=== PATIENT | female | born 1960 | race Caucasian/White ===

== ENCOUNTER 2021-09-29 13:28 | Emergency (ER) | payer SELFPAY ==
[~2021-09-29] VITALS: Ht 165.1 cm; Wt 61.2 kg
[2021-09-29 14:22] LABS: BASOPHILS # (AUTO) 0.1 (0.0-0.1); BASOPHILS % 0.9 % (0.0-1.0); EOSINOPHILS # (AUTO) 1.4 (0.0-0.4); EOSINOPHILS % 19.7 % (0.0-6.0); HEMATOCRIT 39.9 % (34.2-44.1); HEMOGLOBIN 12.4 g/dL (12.0-16.0); LYMPHOCYTES # (AUTO) 1.6 (1.0-3.2); MEAN CORPUSCULAR HEMOGLOBIN 29.2 pg (28-32); MEAN CORPUSCULAR HGB CONC 31.1 g/dL (31-35); MEAN CORPUSCULAR VOLUME 94.1 fL (81-99); MONOCYTES # (AUTO) 0.4 (0.2-0.8); MONOCYTES % 6.1 % (4.4-11.3); NEUTROPHILS # (AUTO) 3.5 (2.1-6.9); NEUTROPHILS % 50.2 % (38.7-80.0); PLATELET COUNT 219 x10e3/uL (140-360); RED BLOOD COUNT 4.24 x10e6/uL (3.6-5.1); RED CELL DISTRIBUTION WIDTH 12.8 % (11.7-14.4)
[2021-09-29 14:28] LABS: ABG HCO3 26 mmol/L (22-26); ABG PCO2 42 mmHg (35-45); ABG PH 7.39 (7.35-7.45); ABG PO2 81 mmHg (80-105); ABG TCO2 27
[2021-09-29 14:34] LABS: INR 0.91; PROTHROMBIN TIME 12.9 seconds (11.9-14.5)
[2021-09-29 14:43] LABS: ALBUMIN 3.5 g/dL (3.5-5.0); ALBUMIN/GLOBULIN RATIO 1.1 (0.8-2.0); ANION GAP 12.4 mmol/L (8-16); CALCIUM 8.8 mg/dL (8.4-10.2); CREATININE, SERUM 0.67 mg/dL (0.57-1.11); MAGNESIUM 1.7 MG/DL (1.3-2.1); POTASSIUM 3.4 mmol/L (3.5-5.1)
[2021-09-29 14:49] LABS: CREATINE KINASE MB 1.2 ng/mL (0-5.0)
[2021-09-29 14:53] LABS: B-TYPE NATRIURETIC PEPTIDE2 59.6 pg/mL (0-100)
== END 2021-09-29 15:58 | disposition home or self-care (01) ==
LOC: ER 13:31
DX: R06.02 Shortness of breath (principal); J44.1 Chronic obstructive pulmonary disease with (acute) exacerbation; J40 Bronchitis, not specified as acute or chronic; I10 Essential (primary) hypertension; Z20.822 Contact with and (suspected) exposure to COVID-19
CPT/HCPCS: 36415; 36600; 71045; 80053; 82550; 82553; 82805; 83605; 83735; 83880; 84484; 85025; 85610; 85730; 87040; 93005; 99284; U0002

== ENCOUNTER 2022-09-26 10:47 | Inpatient (IN) | payer SELFPAY ==
[~2022-09-26] VITALS: Ht 165.1 cm; Wt 72.7 kg
[~2022-09-26 10:47] MED LIST: AZITHROMYCIN250 MG PO; BUSPIRONE HCL5 MG PO; CARDIZEM60 MG PO; DILTIAZEM PO; LISINOPRIL5 MG PO; PREDNISONE20 MG PO
[2022-09-26] MEDS ORDERED: ALBUTEROL/IPRATROPIUM 3 ML NEB NEB SCH (11:15)
[2022-09-26 11:25] LABS: BASOPHILS # (AUTO) 0.1 (0.0-0.1); BASOPHILS % 0.4 % (0.0-1.0); EOSINOPHILS # (AUTO) 0.9 (0.0-0.4); HEMATOCRIT 45.2 % (34.2-44.1); HEMOGLOBIN 13.7 g/dL (12.0-16.0); LYMPHOCYTES # (AUTO) 2.1 (1.0-3.2); MEAN CORPUSCULAR HEMOGLOBIN 29.9 pg (28-32); MEAN CORPUSCULAR HGB CONC 30.3 g/dL (31-35); MEAN CORPUSCULAR VOLUME 98.7 fL (81-99); MONOCYTES # (AUTO) 0.4 (0.2-0.8); MONOCYTES % 3.4 % (4.4-11.3); NEUTROPHILS # (AUTO) 8.7 (2.1-6.9); NEUTROPHILS % 71.8 % (38.7-80.0); PLATELET COUNT 248 x10e3/uL (140-360); RED BLOOD COUNT 4.58 x10e6/uL (3.6-5.1); RED CELL DISTRIBUTION WIDTH 13.1 % (11.7-14.4)
[2022-09-26] MEDS ORDERED: METHYLPREDNISOLONE SOD SUCC 125 MG/2ML VIAL IV ONE (11:30)
[2022-09-26] MEDS ORDERED: LORAZEPAM INJ 2 MG/ML VIAL IV ONE (11:30)
[2022-09-26 11:48] LABS: ALBUMIN 4.1 g/dL (3.5-5.0); ALBUMIN/GLOBULIN RATIO 1.2 (0.8-2.0); ANION GAP 16.6 mmol/L (8-16); CALCIUM 9.5 mg/dL (8.4-10.2); CREATININE, SERUM 0.65 mg/dL (0.57-1.11); POTASSIUM 3.6 mmol/L (3.5-5.1)
[2022-09-26 12:04] LABS: ABG HCO3 24 mmol/L (22-26); ABG PCO2 40 mmHg (35-45); ABG PH 7.38 (7.35-7.45); ABG PO2 56 mmHg (80-105); ABG TCO2 25
[2022-09-26] MEDS ORDERED: KETOROLAC TROMETHAMINE 30 MG/ML VIAL IV STA (12:42)
[2022-09-26] MEDS ORDERED: Morphine 4mg INJECTION 4 MG/ML INJ IV PRN (13:00)
[2022-09-26] MEDS ORDERED: LACTATED RINGER'S 1,000 ML INJ ONE (13:00)
[2022-09-26] MEDS ORDERED: ONDANSETRON HCL INJ 2MG/ML 2ML 2 MG/ML VIAL IV PRN (13:00)
[2022-09-26] MEDS ORDERED: SODIUM CHLORIDE 0.9% 1000ML 1,000 ML IV SCH (13:00)
[2022-09-26] MEDS ORDERED: DILTIAZEM HCL60 MG PO (13:36)
[2022-09-26] MEDS ORDERED: LISINOPRIL5 MG PO (13:36)
[2022-09-26] MEDS ORDERED: ALBUTEROL/IPRATROPIUM 3 ML NEB NEB PRN (15:30)
[2022-09-26] MEDS ORDERED: ZOLPIDEM TARTRATE 5 MG TAB PO PRN (15:30)
[2022-09-26] MEDS: LACTATED RINGER'S 1,000 ML INJ SCH (15:32)
[2022-09-26] MEDS ORDERED: SODIUM CHLORIDE 0.9% 250ML 250 ML ONE (15:42)
[2022-09-26] MEDS: DILTIAZEM HCL 60 MG TAB PO SCH (17:45)
[2022-09-26 23:00] VITALS: BP 135/75
[2022-09-26] MEDS: ACETAMINOPHEN 325 MG TAB PO PRN (23:52)
[2022-09-27] VITALS (30 sets, daily range): BP systolic 98–137; BP diastolic 48–80
[2022-09-27] MEDS: ACETAMINOPHEN 325 MG TAB PO PRN ×3 (02:53→20:31)
[2022-09-27 06:54] LABS: BASOPHILS % 0.3 % (0.0-1.0); HEMATOCRIT 36.2 % (34.2-44.1); HEMOGLOBIN 11.8 g/dL (12.0-16.0); LYMPHOCYTES % 13.1 % (18.0-39.1); MEAN CORPUSCULAR HGB CONC 32.6 g/dL (31-35); MEAN CORPUSCULAR VOLUME 92.1 fL (81-99); MONOCYTES # (AUTO) 0.6 (0.2-0.8); MONOCYTES % 8.1 % (4.4-11.3); NEUTROPHILS # (AUTO) 6.2 (2.1-6.9); PLATELET COUNT 201 x10e3/uL (140-360); RED BLOOD COUNT 3.93 x10e6/uL (3.6-5.1)
[2022-09-27 07:18] LABS: CALCIUM 9.2 mg/dL (8.4-10.2); CREATININE, SERUM 0.56 mg/dL (0.57-1.11)
[2022-09-27] MEDS: METHYLPREDNISOLONE SOD SUCC 125 MG/2ML VIAL IV SCH (08:34)
[2022-09-27] MEDS: DILTIAZEM HCL 60 MG TAB PO SCH ×2 (08:37→16:57)
[2022-09-27] MEDS: LISINOPRIL 2.5 MG TAB PO SCH (08:38)
[2022-09-27] MEDS: LACTATED RINGER'S 1,000 ML INJ SCH (11:54)
[2022-09-27] MEDS: ALBUTEROL/IPRATROPIUM 3 ML NEB NEB PRN ×2 (16:14→19:11)
[2022-09-27] MEDS ORDERED: BUSPIRONE HCL 5 MG TAB PO PRN (18:00)
[2022-09-27] MEDS: CLONAZEPAM 0.5 MG TAB PO SCH (20:30)
[2022-09-27] MEDS ORDERED: DIPHENHYDRAMINE HCL 25 MG CAP PO PRN (21:00)
[2022-09-27] MEDS: TRAMADOL HCL 50 MG TAB PO PRN (22:37)
[2022-09-28] VITALS (20 sets, daily range): BP systolic 96–128; BP diastolic 57–106
[2022-09-28 06:43] LABS: BASOPHILS % 0.3 % (0.0-1.0); EOSINOPHILS % 0.1 % (0.0-6.0); HEMATOCRIT 35.1 % (34.2-44.1); HEMOGLOBIN 11.2 g/dL (12.0-16.0); LYMPHOCYTES # (AUTO) 1.9 (1.0-3.2); LYMPHOCYTES % 25.1 % (18.0-39.1); MEAN CORPUSCULAR HEMOGLOBIN 29.9 pg (28-32); MEAN CORPUSCULAR HGB CONC 31.9 g/dL (31-35); MEAN CORPUSCULAR VOLUME 93.6 fL (81-99); MONOCYTES # (AUTO) 0.5 (0.2-0.8); NEUTROPHILS # (AUTO) 5.1 (2.1-6.9); NEUTROPHILS % 67.1 % (38.7-80.0); PLATELET COUNT 205 x10e3/uL (140-360); RED BLOOD COUNT 3.75 x10e6/uL (3.6-5.1); RED CELL DISTRIBUTION WIDTH 13.3 % (11.7-14.4)
[2022-09-28 07:00] LABS: ALBUMIN 3.2 g/dL (3.5-5.0); ALBUMIN/GLOBULIN RATIO 1.2 (0.8-2.0); ANION GAP 11.9 mmol/L (8-16); CREATININE, SERUM 0.58 mg/dL (0.57-1.11); POTASSIUM 3.9 mmol/L (3.5-5.1)
[2022-09-28] MEDS: METHYLPREDNISOLONE SOD SUCC 125 MG/2ML VIAL IV SCH ×2 (09:14→20:00)
[2022-09-28] MEDS: DILTIAZEM HCL 60 MG TAB PO SCH ×2 (09:19→16:01)
[2022-09-28] MEDS: LISINOPRIL 2.5 MG TAB PO SCH (09:19)
[2022-09-28] MEDS: ALBUTEROL/IPRATROPIUM 3 ML NEB NEB SCH ×3 (11:02→19:00)
[2022-09-28] MEDS: CLONAZEPAM 0.5 MG TAB PO SCH (20:00)
[2022-09-28] MEDS: TRAMADOL HCL 50 MG TAB PO PRN (20:00)
[2022-09-29] VITALS (14 sets, daily range): BP systolic 110–132; BP diastolic 56–73
[2022-09-29] MEDS: ALBUTEROL/IPRATROPIUM 3 ML NEB NEB SCH ×3 (00:35→13:00)
[2022-09-29] MEDS: METHYLPREDNISOLONE SOD SUCC 125 MG/2ML VIAL IV SCH (08:12)
[2022-09-29] MEDS: DILTIAZEM HCL 60 MG TAB PO SCH (08:13)
[2022-09-29] MEDS: LISINOPRIL 2.5 MG TAB PO SCH (08:14)
[2022-09-29 08:23] LABS: BASOPHILS % 0.1 % (0.0-1.0); HEMATOCRIT 39.3 % (34.2-44.1); HEMOGLOBIN 12.5 g/dL (12.0-16.0); LYMPHOCYTES # (AUTO) 1.2 (1.0-3.2); MEAN CORPUSCULAR HEMOGLOBIN 29.9 pg (28-32); MEAN CORPUSCULAR HGB CONC 31.8 g/dL (31-35); MONOCYTES # (AUTO) 0.4 (0.2-0.8); MONOCYTES % 4.9 % (4.4-11.3); NEUTROPHILS # (AUTO) 6.2 (2.1-6.9); NEUTROPHILS % 79.2 % (38.7-80.0); PLATELET COUNT 220 x10e3/uL (140-360); RED BLOOD COUNT 4.18 x10e6/uL (3.6-5.1); RED CELL DISTRIBUTION WIDTH 13.2 % (11.7-14.4)
[2022-09-29 08:39] LABS: ALBUMIN 3.8 g/dL (3.5-5.0); ALBUMIN/GLOBULIN RATIO 1.3 (0.8-2.0); ANION GAP 16.3 mmol/L (8-16); CALCIUM 9.3 mg/dL (8.4-10.2); CREATININE, SERUM 0.6 mg/dL (0.57-1.11); POTASSIUM 4.3 mmol/L (3.5-5.1)
[2022-09-29] MEDS ORDERED: PROVENTIL HFA6.7 GM INH (13:31)
[2022-09-29] MEDS ORDERED: PREDNISONE5 MG PO (13:33)
[2022-09-29] MEDS ORDERED: LEVOFLOXACIN500 MG (13:35)
[2022-09-29] MEDS ORDERED: BUSPIRONE HCL5 MG PO (13:35)
[2022-09-30] MEDS ORDERED: METHYLPREDNISOLONE SOD SUCC 125 MG/2ML VIAL IV SCH (09:00)
== END 2022-09-29 14:21 | disposition home or self-care (01) | DRG 190 ==
LOC: ER 11:10 → ERHOLD 12:59 → ICU 23:25
PROVIDERS: ADMIT Internal Medicine; ATTEND Internal Medicine
DX: J44.1 Chronic obstructive pulmonary disease with (acute) exacerbation (principal); J18.9 Pneumonia, unspecified organism; D64.9 Anemia, unspecified; F41.9 Anxiety disorder, unspecified; I10 Essential (primary) hypertension; Z79.2 Long term (current) use of antibiotics; Z79.52 Long term (current) use of systemic steroids; Z79.899 Other long term (current) drug therapy; Z88.5 Allergy status to narcotic agent; Z88.0 Allergy status to penicillin; Z87.891 Personal history of nicotine dependence
CPT/HCPCS: 36415; 36600; 71045; 80048; 80053; 82805; 83605; 84484; 85025; 87040; 93005; 94640; 94660; 94799; 99252; 99284; J0456; J0692; J0696; J1885; J2060; J2270; J2405; J2930; J7050; J7121

== ENCOUNTER 2022-10-10 11:40 | Emergency (ER) | payer SELFPAY ==
[~2022-10-10] VITALS: Ht 165.1 cm; Wt 72.6 kg
[~2022-10-10 11:40] MED LIST changes: +DILTIAZEM HCL60 MG PO; +LEVOFLOXACIN500 MG; +PREDNISONE5 MG PO; +PROVENTIL HFA6.7 GM INH
[2022-10-10 12:23] LABS: BASOPHILS % 0.3 % (0.0-1.0); EOSINOPHILS # (AUTO) 0.4 (0.0-0.4); EOSINOPHILS % 5.1 % (0.0-6.0); HEMATOCRIT 41.3 % (34.2-44.1); HEMOGLOBIN 12.5 g/dL (12.0-16.0); LYMPHOCYTES # (AUTO) 1.8 (1.0-3.2); LYMPHOCYTES % 25.7 % (18.0-39.1); MEAN CORPUSCULAR HEMOGLOBIN 29.6 pg (28-32); MEAN CORPUSCULAR HGB CONC 30.3 g/dL (31-35); MEAN CORPUSCULAR VOLUME 97.9 fL (81-99); MONOCYTES # (AUTO) 0.4 (0.2-0.8); MONOCYTES % 6.4 % (4.4-11.3); NEUTROPHILS # (AUTO) 4.3 (2.1-6.9); NEUTROPHILS % 62.4 % (38.7-80.0); PLATELET COUNT 227 x10e3/uL (140-360); RED BLOOD COUNT 4.22 x10e6/uL (3.6-5.1); RED CELL DISTRIBUTION WIDTH 12.5 % (11.7-14.4)
[2022-10-10 12:52] LABS: ALBUMIN 3.2 g/dL (3.5-5.0); ALBUMIN/GLOBULIN RATIO 1.1 (0.8-2.0); ANION GAP 14.1 mmol/L (8-16); CALCIUM 8.7 mg/dL (8.4-10.2); CREATININE, SERUM 0.61 mg/dL (0.57-1.11); POTASSIUM 3.1 mmol/L (3.5-5.1)
[2022-10-10 13:13] VITALS: BP 101/61
== END 2022-10-10 13:14 | disposition home or self-care (01) ==
LOC: ER 11:50
DX: F41.9 Anxiety disorder, unspecified (principal); I10 Essential (primary) hypertension; J44.9 Chronic obstructive pulmonary disease, unspecified
CPT/HCPCS: 36415; 80053; 85025; 99284

== ENCOUNTER 2023-09-25 22:05 | Emergency (ER) | payer SELFPAY ==
[~2023-09-25] VITALS: Ht 322.6 cm; Wt 74.8 kg
[~2023-09-25 22:05] MED LIST changes: +BUDESONIDE-FO10.2 GM INH; +BUSPIRONE HCL10 MG PO; +DILTIAZEM HCL30 MG PO; +IPRATROPIU0.2 MG/1 M NEB; +PREDNISONE10 MG PO; +PULMICORT2 M1 INH
[2023-09-25] MEDS ORDERED: FAMOTIDINE 20 MG/2 ML VIAL IV STA (22:55)
[2023-09-25] MEDS ORDERED: ALBUTEROL SULF 0.083% NEB SOLN 3 ML NEB NEB STA (22:55)
[2023-09-25] MEDS ORDERED: IPRATROPIUM BROMIDE 0.02% 2.5 ML NEB NEB ONE (23:00)
[2023-09-25] MEDS ORDERED: DIPHENHYDRAMINE HCL INJ 50 MG/ML VIAL IV ONE (23:00)
[2023-09-25 23:20] LABS: BASOPHILS % 0.3 % (0.0-1.0); EOSINOPHILS # (AUTO) 0.4 (0.0-0.4); EOSINOPHILS % 2.9 % (0.0-6.0); HEMATOCRIT 43.1 % (34.2-44.1); HEMOGLOBIN 13.6 g/dL (12.0-16.0); LYMPHOCYTES # (AUTO) 3.3 (1.0-3.2); LYMPHOCYTES % 23.4 % (18.0-39.1); MEAN CORPUSCULAR HGB CONC 31.6 g/dL (31-35); MEAN CORPUSCULAR VOLUME 95.1 fL (81-99); MONOCYTES # (AUTO) 0.6 (0.2-0.8); MONOCYTES % 4.5 % (4.4-11.3); NEUTROPHILS # (AUTO) 9.5 (2.1-6.9); NEUTROPHILS % 67.8 % (38.7-80.0); PLATELET COUNT 315 x10e3/uL (140-360); RED BLOOD COUNT 4.53 x10e6/uL (3.6-5.1); RED CELL DISTRIBUTION WIDTH 12.8 % (11.7-14.4)
[2023-09-25 23:24] LABS: WHITE BLOOD COUNT 13.99 x10e3/uL (4.8-10.8)
[2023-09-25 23:38] VITALS: PULSE 100; RESP 24; O2SAT 100
[2023-09-25 23:40] LABS: ABG HCO3 27 mmol/L (22-26); ABG PCO2 43 mmHg (35-45); ABG PO2 245 mmHg (80-105); ABG TCO2 28
[2023-09-25 23:52] LABS: ALBUMIN 3.7 g/dL (3.5-5.0); ALBUMIN/GLOBULIN RATIO 1.1 (0.8-2.0); ANION GAP 17.9 mmol/L (8-16); BILIRUBIN,TOTAL 0.4 mg/dL (0.2-1.2); CALCIUM 9.2 mg/dL (8.4-10.2); CREATININE, SERUM 1.08 mg/dL (0.57-1.11); TOTAL PROTEIN 7.1 g/dL (6.5-8.1)
[2023-09-26 00:16] LABS: POTASSIUM 2.9 mmol/L (3.5-5.1)
[2023-09-26] MEDS ORDERED: POTASSIUM CHLORIDE 20 MEQ TAB CR PO STA (00:19)
[2023-09-26] MEDS ORDERED: ONDANSETRON ODT4 MG SL (01:44)
[2023-09-26 02:05] VITALS: BP 109/75; PULSE 100; RESP 18; TEMP 98.3; O2SAT 100
== END 2023-09-26 02:05 | disposition home or self-care (01) ==
LOC: ER 22:11
DX: J44.9 Chronic obstructive pulmonary disease, unspecified (principal); F41.9 Anxiety disorder, unspecified; Z11.52 Encounter for screening for COVID-19
CPT/HCPCS: 36415; 71045; 80053; 82805; 83880; 84484; 85025; 93005; 94640; 94799; 99284; J1200; U0002